=== PATIENT | male | born 1960 | race Caucasian/White ===

== ENCOUNTER → 2018-10-19 | Day surgery (SDC) | payer OTHER ==
[~2018-10-19] MED LIST: CEFAZOLIN SODIUM 1 GM/VIAL ONE; EPHEDRINE SULF 50 MG/10 ML SYR ONE; FENTANYL CITR 100 MCG/2 ML ONE; KETOROLAC 30 MG/ML INJ ONE; LIDOCAINE 1% MPF 30 ML VIAL ONE; LIDOCAINE 2% MPF 5 ML VIAL ONE; MIDAZOLAM HCL 2 MG/2 ML INJ ONE; Mastisol Adhesive Liq ONE; NA CHLORIDE 0.9% 100 ML IV ONE; NA CIT/CITRIC AC 30 ML ORAL UDC ONE; PROPOFOL 200 MG/20 ML VIAL IV ONE; Phenylephrine HCl 10 MG/ML 1 ML VIAL ONE; ROCURONIUM 50 MG/5 ML VIAL IV ONE; Ringers Lactate 1,000 ML IV ONE; SUCCINYLCHOLINE 20 MG/ML (10 ML) IV ONE; TETANUS & DIPHTHERIA TOX,ADULT 0.5 ML VIAL ONE
--- NOTE | 2018-10-19 12:32 | ER ---
Nurse's Notes [facility] Name: Jaquan Allan Age: 58 yrs Sex: Male : 1960 Arrival Date: 10/19/2018 Time: 11:29 Bed 9 Private MD: Diagnosis: Laceration of blood vessel of left little finger;Open fracture 5th digit left hand Presentation: 10/19 11:43 Presenting complaint: Patient states: Waterproofing Mixer disc "exploded", laceration noted to ph abdomen, bleeding controlled, laceration to base of L pinky finger w/ bleeding controlled. Transition of care: patient was not received from another setting of care. Complicating Factors: There are no complicating factors for this patient. Onset of symptoms was October 19, 2018. Risk Assessment: Do you want to hurt yourself or someone else? Patient reports no desire to harm self or others. Initial Sepsis Screen: Does the patient meet any 2 criteria? No. Patient's initial sepsis screen is negative. Does the patient have a suspected source of infection? No. Patient's initial sepsis screen is negative. Care prior to arrival: None. 11:43 Method Of Arrival: Ambulatory ph 11:43 Acuity: CARLA 4 ph 12:15 Acuity: CARLA 2 hb Historical: - Allergies: 11:46 No Known Allergies; ph - PMHx: 11:46 Hypertension; Hyperlipidemia; ph - Immunization history:: Last tetanus immunization: > 10 years ago. - Social history:: Smoking status: Patient/guardian denies using tobacco. - Ebola Screening: : No symptoms or risks identified at this time. Screenin:57 Abuse screen: Denies threats or abuse. Denies injuries from another. Nutritional hb screening: No deficits noted. Tuberculosis screening: No symptoms or risk factors identified. Fall Risk None identified. Assessment: 11:52 General: Appears in no apparent distress. Pain: Pain currently is 7 out of 10 on a pain hb scale. Neuro: Level of Consciousness is awake, alert, obeys commands, Oriented to person, place, time, situation. Cardiovascular: Capillary refill < 3 seconds Patient's skin is warm and dry. Respiratory: Airway is patent Respiratory effort is even, unlabored, Respiratory pattern is regular, symmetrical. GI: No signs and/or symptoms were reported involving the gastrointestinal system. : No signs and/or symptoms were reported regarding the genitourinary system. EENT: No signs and/or symptoms were reported regarding the EENT system. Derm: Skin is pink, warm \\T\\ dry. Musculoskeletal: No signs and/or symptoms reported regarding the musculoskeletal system. Injury Description: laceration to base of little finger and left abdomen, bleeding controlled. 12:22 Reassessment: Left little finger noted to be white, ROULA Thomas aware. hb 12:35 Reassessment: Admission ordered, awaiting OR team at this time. NAD. VSS. Family hb remains at bedside. Vital Signs: 11:46 BP 121 / 78; Pulse 85; Resp 20; Temp 97.9; Pulse Ox 98% on R/A; ph 12:30 BP 126 / 76; Pulse 84; Resp 16; Pulse Ox 100% on R/A; Pain 2/10; hb ED Course: 11:29 Patient arrived in ED. tw3 11:45 Triage completed. ph 11:47 Arm band placed on. ph 11:49 William Mustafa PA is PHCP. jr8 11:49 Ahsan Paulino MD is Attending Physician. jr8 11:52 Patient has correct armband on for positive identification. Bed in low position. hb 12:15 Inserted saline lock: 18 gauge in right forearm, using aseptic technique. Blood hb collected. 12:22 Faith Denny, JASE is Primary Nurse. hb 12:23 X-ray completed. Portable x-ray completed in exam room. Patient tolerated procedure jb2 well. 12:25 XRAY Hand LEFT 3 View In Process Unspecified. EDMS 12:31 Inna Dickerson MD is Hospitalizing Provider. jr8 12:52 No provider procedures requiring assistance completed. hb 12:52 Patient admitted, IV remains in place. 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 Exp: hb 09/21/2020. Lot #: [id number]. } Route: IM; Site: right deltoid; 12:32 Drug: Ancef 1 grams Route: IVPB; Site: right forearm; hb Outcome: 12:32 Decision to Hospitalize by Provider. jr8 12:52 Admitted to OR accompanied by nurse, family with patient, via stretcher, with chart. hb 12:52 Condition: stable 12:52 Instructed on the need for admit, Demonstrated understanding of instructions. 12:53 Patient left the ED. hb Signatures: Dispatcher [employer] EDMS Mika Guido2 William Mustafa PA PA jr8 Sharon Ruelas RN RN Faith Galicia RN RN Sheree Jackson tw3
--- NOTE | 2018-10-19 12:32 | EDPHYS ---
Physician Documentation [facility] Name: Jaquan Allan Age: 58 yrs Sex: Male : 1960 Arrival Date: 10/19/2018 Time: 11:29 Bed 9 Private MD: ED Physician Ahsan Paulino HPI: 10/19 12:14 This 58 yrs old Male presents to ER via Ambulatory with complaints of jr8 Laceration To Hand, Laceration to Abdomen. 12:14 The patient has a laceration related to: working, occurred outdoors. The laceration(s) jr8 is(are) located on the abdomen and left hand. Onset: The symptoms/episode began/occurred acutely, today. Associated signs and symptoms: The patient has no apparent associated signs or symptoms. The patient has not experienced similar symptoms in the past. The patient has not recently seen a physician. Stated that circular saw blew up causing laceration to left 5th digit on left hand and abdomen . Historical: - Allergies: 11:46 No Known Allergies; ph - PMHx: 11:46 Hypertension; Hyperlipidemia; ph - Immunization history:: Last tetanus immunization: > 10 years ago. - Social history:: Smoking status: Patient/guardian denies using tobacco. - Ebola Screening: : No symptoms or risks identified at this time. ROS: 12:14 Eyes: Negative for injury, pain, redness, and discharge, ENT: Negative for injury, jr8 pain, and discharge, Neck: Negative for injury, pain, and swelling, Cardiovascular: Negative for chest pain, palpitations, and edema, Respiratory: Negative for shortness of breath, cough, wheezing, and pleuritic chest pain, Abdomen/GI: Negative for abdominal pain, nausea, vomiting, diarrhea, and constipation, Back: Negative for injury and pain, MS/Extremity: Negative for injury and deformity, Neuro: Negative for headache, weakness, numbness, tingling, and seizure. 12:14 Skin: Positive for laceration(s), of the left hand and abdomen. Exam: 12:14 Eyes: Pupils equal round and reactive to light, extra-ocular motions intact. Lids and jr8 lashes normal. Conjunctiva and sclera are non-icteric and not injected. Cornea within normal limits. Periorbital areas with no swelling, redness, or edema. ENT: Nares patent. No nasal discharge, no septal abnormalities noted. Tympanic membranes are normal and external auditory canals are clear. Oropharynx with no redness, swelling, or masses, exudates, or evidence of obstruction, uvula midline. Mucous membranes moist. Neck: Trachea midline, no thyromegaly or masses palpated, and no cervical lymphadenopathy. Supple, full range of motion without nuchal rigidity, or vertebral point tenderness. No Meningismus. Cardiovascular: Regular rate and rhythm with a normal S1 and S2. No gallops, murmurs, or rubs. Normal PMI, no JVD. No pulse deficits. Respiratory: Lungs have equal breath sounds bilaterally, clear to auscultation and percussion. No rales, rhonchi or wheezes noted. No increased work of breathing, no retractions or nasal flaring. Abdomen/GI: Soft, non-tender, with normal bowel sounds. No distension or tympany. No guarding or rebound. No evidence of tenderness throughout. Back: No spinal tenderness. No costovertebral tenderness. Full range of motion. Neuro: Awake and alert, GCS 15, oriented to person, place, time, and situation. Cranial nerves II-XII grossly intact. Motor strength 5/5 in all extremities. Sensory grossly intact. Cerebellar exam normal. Normal gait. 12:14 Musculoskeletal/extremity: Extremities: grossly normal except: noted in the left hand 5th digit: Patients 5th digit is white from PIP to tip of finger. Mild sensation changes to lateral aspect. Approximately 2.5 cm laceration to MCP region kemp aspect that is deep. No active bleeding , ROM: intact in all extremities. 12:14 Skin: Patient has approximately 4.5 cm laceration down to dermal layer to left mid abdomen. Bleeding controlled. . Vital Signs: 11:46 BP 121 / 78; Pulse 85; Resp 20; Temp 97.9; Pulse Ox 98% on R/A; ph 12:30 BP 126 / 76; Pulse 84; Resp 16; Pulse Ox 100% on R/A; Pain 2/10; hb MDM: 11:49 Patient medically screened. jr8 12:13 ED course: Consulted Dr. Kaur who will take patient to surgery immediately for jr8 vascular injury . 12:14 Data reviewed: vital signs, nurses notes, lab test result(s), radiologic studies, plain jr8 films. Data interpreted: Pulse oximetry: on room air is 98 %. Interpretation: normal. Counseling: I had a detailed discussion with the patient and/or guardian regarding: the historical points, exam findings, and any diagnostic results supporting the discharge/admit diagnosis, lab results, the need for further work-up and treatment in the hospital. 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 Exp: hb 09/21/2020. Lot #: [id number]. } Route: IM; Site: right deltoid; 12:32 Drug: Ancef 1 grams Route: IVPB; Site: right forearm; hb Disposition: 14:18 Co-signature as Attending Physician, Ahsan Paulino MD I agree with the assessment and thomas plan of care. Disposition: 10/19/18 12:32 Hospitalization ordered by Inna Dickerson for Observation. Preliminary diagnosis are Laceration of blood vessel of left little finger, Open fracture 5th digit left hand. - Bed requested for Telemetry/MedSurg (observation). - Status is Observation. hb - Condition is Stable. - Problem is new. - Symptoms are unchanged. UTI on Admission? No Signatures: Dispatcher [employer] EDNC Ahsan Paulino MD MD cha Roszak, Josh, PA PA jr8 Sharon Ruelas RN RN Faith Denny RN RN hb Corrections: (The following items were deleted from the chart) 12:53 12:32 Hospitalization Ordered by Inna Dickerson MD for Observation. Preliminary hb diagnosis is Laceration of blood vessel of left little finger; Open fracture 5th digit left hand. Bed requested for Telemetry/MedSurg (observation). Status is Observation. Condition is Stable. Problem is new. Symptoms are unchanged. UTI on Admission? No. jr8
--- NOTE | 2018-10-19 12:34 | RAD REPORT ---
EXAM DESCRIPTION: RAD - Hand Left 3 View - 10/19/2018 12:27 pm CLINICAL HISTORY: laceration;Pain COMPARISON: No comparisons FINDINGS: Comminuted fracture involves the proximal phalanx of the fifth finger. No foreign body is evident.
[2018-10-19 12:46] LABS: Absolute Lymphocytes (CBC) 1.3 K/uL (0.7-4.9); Absolute Monocytes 0.5 K/uL (0.1-1.3); Hematocrit 42.7 % (39.6-49.0); Lymphocytes % 22.2 % (15.3-44.8); MPV 8.3 fL (7.6-11.3); Monocytes % 8.6 % (3.3-12.3); RBC Red Blood Cell Count 4.64 M/uL (4.33-5.43)
[2018-10-19 13:01] LABS: Potassium 4.1 mmol/L (3.5-5.1)
--- NOTE | 2018-10-19 15:37 | RAD REPORT ---
EXAM DESCRIPTION: RAD - Hand Left 2 View - 10/19/2018 3:32 pm CLINICAL HISTORY: PINNING OF 5TH FINGER COMPARISON: Hand Left 3 View dated 10/19/2018 FINDINGS: Fluoroscopic imaging from pinning of a a single proximal phalanx fracture is submitted. De tails of procedure not available. Fluoroscopy time 0.1 minutes.
--- NOTE | 2018-10-23 09:54 | OP ---
Date of Procedure: 10/19/2018 Surgeon: Faraz Kaur MD Tissue Inserter: Tim. Preoperative Diagnoses: Open fracture of the left little finger proximal phalanx and laceration to t he abdominal wall. Postoperative Diagnoses: Open fracture of the left little finger proximal phalanx and laceration to the abdominal wall. Procedure Performed: Debridement of skin and subcu tissue, layered closure of 5-cm wound of the ante rior abdominal wall, debridement of skin and subcu tissue of the left little finger, flap closure, sp lint, percutaneous pinning and microdissection repair of the ulnar digital artery, and splint. Anesthesia: General. Procedure In Detail: After satisfactory induction of general anesthesia, the abdomen and the left ar m were prepped with Betadine scrub and Betadine paint. Dry sterile drapes were applied in the usual manner. The arm was elevated, exsanguinated with an Esmarch. Tourniquet was inflated to 250 mmHg. Hand was placed on the [place] table. Skin and subcu tissue were debridement as needed of the little finger. The abdomen was debrided with skin and subcu tissue. Both wounds were jet lavaged and irri gated, and then the abdomen was closed with 4-0 PDS running subcuticular followed by tincture of mynor oin, Steri-Strips, 4x4, and tape dressing. The finger was debrided of skin and subcu tissue with a g rinder went through. Small foreign body was removed with dark tissue consisted of backside grinder, and then dissection proceeded down with a Max incision, zigzag fracture. The flexor tendon she ath had been viable. The tendons were intact. The patient had normal tone of the finger and normal posture. The patient then underwent dissection of the digital artery, digital nerve on ulnar side. The nerve was abraded and was intact. The artery had been transected. After was brought in the field. Microdissection was performed with curved micro scissors proximal clamp and repair was done with 0 Prolene suture. The dressing was irrigated with 2% Xylocaine during the proc edure. Attention was then turned to the fracture. Threaded K-wires 0.035 were placed from distal to proximal with the PIP joint flexed 90 degrees in and out the MCP and this was flexed 90 degrees. Th e was then advanced proximately and then the finger was placed in extension at the PIP and the . C-arm revealed adequate reduction and was placed. Tourniquet was releas ed and the wound was closed of flap advancement using 4-0 Prolene simple sutures of vertical mattress and half buried mattress. Dressing of Xeroform, 2-inch Ryan, Kerlix, and an ulnar gutter splint ho lding the wrist in 10 degrees of dorsiflexion, MCP 90, PIP and DIP 0. The patient tolerated the proc edure well and returned to recovery. APPLE/ARIEL Voice ID: [id number] Report ID: [id number]
== END ==
LOC: EDSTATUS 09:37 → ER 11:26 → DS 11:26 → ER 17:00
PROVIDERS: ATTEND Emergency Medicine
PROC: 0JBK0ZZ Excision of Left Hand Subcutaneous Tissue and Fascia, Open Approach (ICD-10-PCS; 2018-10-19)
PROC: 03QF0ZZ Repair Left Hand Artery, Open Approach (ICD-10-PCS; 2018-10-19)
PROC: 0HXGXZZ Transfer Left Hand Skin, External Approach (ICD-10-PCS; 2018-10-19)
PROC: 0PH Upper Bones, Insertion (ICD-10-PCS; principal; 2018-10-19 14:15)
PROC: 0JQ80ZZ Repair Abdomen Subcutaneous Tissue and Fascia, Open Approach (ICD-10-PCS; 2018-10-19 14:15)
DX: S65.517A Laceration of blood vessel of left little finger, initial encounter (principal); S62.617B Displaced fracture of proximal phalanx of left little finger, initial encounter for open fracture; S31.119A Laceration without foreign body of abdominal wall, unspecified quadrant without penetration into peritoneal cavity, initial encounter; W31.2XXA Contact with powered woodworking and forming machines, initial encounter; Z23 Encounter for immunization; I10 Essential (primary) hypertension; E78.5 Hyperlipidemia, unspecified
CPT/HCPCS: 36415; 80048; 85025; 90714; 96374; 99285; J0330; J0690; J2250; J2370; J2704; J3010

== ENCOUNTER 2018-11-09 14:45 | Emergency (ER) | payer OTHER ==
--- NOTE | 2018-11-09 15:54 | RAD REPORT ---
EXAM DESCRIPTION: RAD - Hand Left 3 View - 11/09/2018 3:44 pm CLINICAL HISTORY: 3 weeks post-op, swelling and re-injury;Pain COMPARISON: Hand Left 2 View dated 10/19/2018; Hand Left 3 View dated 10/19/2018 FINDINGS: Two K-wires are seen within the fifth for a spanning a comminuted fracture the proximal ph alanx of the fifth ray. Fracture lucency persists. The laterally located K-wire appears fractured pro ximally.
--- NOTE | 2018-11-09 16:03 | EDPHYS ---
Physician Documentation [facility] Name: Jaquan Allan Age: 58 yrs Sex: Male : 1960 Arrival Date: 11/09/2018 Time: 14:48 Bed 16 Private MD: Ulises Figueredo ED Physician Cristian Mejia HPI: 11/09 15:12 This 58 yrs old Male presents to ER via Ambulatory with complaints of Hand rn Swelling. 15:12 The patient or guardian reports pain, swelling. The complaints affect the left hand rn diffusely. Context: The problem was sustained. Onset: The symptoms/episode began/occurred 3 week(s) ago. Severity of symptoms: At their worst the symptoms were mild, in the emergency department the symptoms are unchanged. The patient has not experienced similar symptoms in the past. The patient has been recently seen by a physician:. Reports hand injury 3 weeks ago and had surgery by Dr. Kaur, reports doing well and sees him every Tuesday. Just saw him 4 days ago. Reports fell this past week again, saw Natasha Tuesday due to mild drainage from wound and swelling of hand, no abx given, told to continue to let wound breathe and remain in splint. Sees Dr. Kaur in 4 days again. . Historical: - Allergies: 15:09 No Known Allergies; ph - Home Meds: 15:09 amlodipine 10 mg tab 1 tab once daily [Active]; azelastine nasal nasal [Active]; ph fluticasone 50 mcg/actuation nasal spsn 2 sprays once daily [Active]; lisinopril 10 mg Oral tab 1 tab once daily [Active]; loratadine 10 mg oral TbDL 1 tab once daily [Active]; meloxicam 7.5 mg oral tab 1 tab once daily [Active]; montelukast 10 mg oral tab 1 tab once daily [Active]; gabapentin 300 mg oral cap 1 cap nightly [Active]; tamsulosin 0.4 mg oral cp24 1 cap once daily [Active]; Cephalexin Oral [Active]; acetaminophen-codeine 300-30 mg Oral tab [Active]; - PMHx: 15:09 Hyperlipidemia; Hypertension; ph - PSHx: 15:09 L hand sx; ph - Immunization history:: Adult Immunizations up to date. - Social history:: Smoking status: Patient uses tobacco products, smokes one pack cigarettes per day. - Ebola Screening: : No symptoms or risks identified at this time. - Family history:: not pertinent. - Hospitalizations: : The patient was recently seen at [facility]. ROS: 15:12 Constitutional: Negative for fever, chills, and weight loss, MS/Extremity: + hand rn swelling and mild drainage Exam: 15:12 Constitutional: This is a well developed, well nourished patient who is awake, alert, rn and in no acute distress. MS/ Extremity: Pulses equal, no cyanosis. + small amount of yellow drainage from surgical wound, no fluctuance, no tenderness, 2 pins dorsum 5th MC, no purulence expressed from wound with pressure. No tenderness along flexor sheaths. Vital Signs: 15:00 BP 139 / 78; Pulse 77; Resp 18; Temp 98.9(TE); Pulse Ox 98% ; Weight 95.25 kg; Height 5 ph ft. 7 in. (170.18 cm); 16:00 BP 128 / 76 LA Supine; Pulse 78; Resp 17 S; Pulse Ox 98% on R/A; rv 15:00 Body Mass Index 32.89 (95.25 kg, 170.18 cm) ph MDM: 14:57 Patient medically screened. rn 15:53 Differential diagnosis: broken pin, infection. Data reviewed: vital signs, nurses rn notes, lab test result(s), radiologic studies, plain films, and as a result, I will discharge patient. Counseling: I had a detailed discussion with the patient and/or guardian regarding: the historical points, exam findings, and any diagnostic results supporting the discharge/admit diagnosis, radiology results, the need for outpatient follow up, to return to the emergency department if symptoms worsen or persist or if there are any questions or concerns that arise at home. ED course: Consulted with Dr. Kaur, will put on abx, place back in splint and will f/u on Tuesday. . 11/09 15:12 Order name: Wound Culture rn 11/09 15:10 Order name: XRAY Hand LEFT 3 View; Complete Time: 16:03 rn Administered Medications: 16:00 Drug: Bactrim (160 mg-800 mg (DS) 1 tablet Route: PO; rv 16:16 Follow up: Response: No adverse reaction rv 16:00 Drug: KeFLEX 500 mg Route: PO; rv 16:16 Follow up: Response: No adverse reaction rv Disposition: 11/09/18 16:02 Discharged to Home. Impression: Fracture of orthopedic pins, Surgical Wound Infection. - Condition is Stable. - Discharge Instructions: Wound Infection. - Prescriptions for Keflex 500 mg Oral Capsule - take 1 capsule by ORAL route every 6 hours for 10 days; 40 capsule. Bactrim DS 800- 160 mg Oral Tablet - take 1 tablet by ORAL route every 12 hours for 10 days; 20 tablet. - Medication Reconciliation Form, Thank You Letter, Antibiotic Education, Prescription Opioid Use form. - Follow up: Faraz Kuar MD; When: 2 - 3 days; Reason: Recheck today's complaints, Re-evaluation by your physician. - Problem is new. - Symptoms have improved. Signatures: Dispatcher [employer] EDMS Cristian Mejia MD MD rn Hall, Patricia RN RN Lucius Maurer RN RN rv Corrections: (The following items were deleted from the chart) 15:15 15:12 Hospitalizations: No recent hospitalization is reported. rn rn 16:34 16:02 11/09/2018 16:02 Discharged to Home. Impression: Fracture of orthopedic pins; rv Surgical Wound Infection. Condition is Stable. Forms are Medication Reconciliation Form, Thank You Letter, Antibiotic Education, Prescription Opioid Use. Follow up: Faraz Kaur; When: 2 - 3 days; Reason: Recheck today's complaints, Re-evaluation by your physician. Problem is new. Symptoms have improved. rn
--- NOTE | 2018-11-09 16:03 | ER ---
Nurse's Notes [facility] Name: Jaquan Allan Age: 58 yrs Sex: Male : 1960 Arrival Date: 11/09/2018 Time: 14:48 Bed 16 Private MD: Ulises Figueredo Diagnosis: Fracture of orthopedic pins;Surgical Wound Infection Presentation: 11/09 14:58 Presenting complaint: Patient states: Had L hand sx w/ hardware placed 11/[address] mg Bardales, fell last Wed and now has increased swelling and drainage from surgical site, denies fever N/V. Transition of care: patient was not received from another setting of care. Onset of symptoms was November 09, 2018. Risk Assessment: Do you want to hurt yourself or someone else? Patient reports no desire to harm self or others. Care prior to arrival: None. 14:58 Method Of Arrival: Ambulatory 14:58 Acuity: CARLA 4 ph 15:45 Initial Sepsis Screen: Does the patient meet any 2 criteria? No. Patient's initial rv sepsis screen is negative. Does the patient have a suspected source of infection? No. Patient's initial sepsis screen is negative. Historical: - Allergies: 15:09 No Known Allergies; ph - Home Meds: 15:09 amlodipine 10 mg tab 1 tab once daily [Active]; azelastine nasal nasal [Active]; ph fluticasone 50 mcg/actuation nasal spsn 2 sprays once daily [Active]; lisinopril 10 mg Oral tab 1 tab once daily [Active]; loratadine 10 mg oral TbDL 1 tab once daily [Active]; meloxicam 7.5 mg oral tab 1 tab once daily [Active]; montelukast 10 mg oral tab 1 tab once daily [Active]; gabapentin 300 mg oral cap 1 cap nightly [Active]; tamsulosin 0.4 mg oral cp24 1 cap once daily [Active]; Cephalexin Oral [Active]; acetaminophen-codeine 300-30 mg Oral tab [Active]; - PMHx: 15:09 Hyperlipidemia; Hypertension; ph - PSHx: 15:09 L hand sx; ph - Immunization history:: Adult Immunizations up to date. - Social history:: Smoking status: Patient uses tobacco products, smokes one pack cigarettes per day. - Ebola Screening: : No symptoms or risks identified at this time. - Family history:: not pertinent. - Hospitalizations: : The patient was recently seen at [facility]. Screenin:45 Abuse screen: Denies threats or abuse. Denies injuries from another. Nutritional rv screening: No deficits noted. Tuberculosis screening: No symptoms or risk factors identified. Fall Risk None identified. Assessment: 15:44 General: Appears in no apparent distress. comfortable, Behavior is calm, cooperative. rv Pain: Denies pain. Neuro: Level of Consciousness is awake, alert, obeys commands, Oriented to person, place, time, situation. Cardiovascular: Capillary refill < 3 seconds. Respiratory: Airway is patent. GI: No signs and/or symptoms were reported involving the gastrointestinal system. : No signs and/or symptoms were reported regarding the genitourinary system. EENT: No signs and/or symptoms were reported regarding the EENT system. Derm: Skin is intact. Musculoskeletal: Swelling present in left hand. Vital Signs: 15:00 BP 139 / 78; Pulse 77; Resp 18; Temp 98.9(TE); Pulse Ox 98% ; Weight 95.25 kg; Height 5 ph ft. 7 in. (170.18 cm); 16:00 BP 128 / 76 LA Supine; Pulse 78; Resp 17 S; Pulse Ox 98% on R/A; rv 15:00 Body Mass Index 32.89 (95.25 kg, 170.18 cm) ph ED Course: 14:48 Patient arrived in ED. mr 14:49 Ulises Figueredo MD is Private Physician. mr 14:57 Cristian Mejia MD is Attending Physician. rn 15:00 Triage completed. ph 15:09 Arm band placed on Patient placed in an exam room, on a stretcher. ph 15:44 Lucius Mcnally RN is Primary Nurse. rv 15:44 XRAY Hand LEFT 3 View In Process Unspecified. EDMS 15:45 Patient has correct armband on for positive identification. Bed in low position. Call rv light in reach. Side rails up X 1. Pulse ox on. NIBP on. 16:00 Faraz Kaur MD is Referral Physician. rn Administered Medications: 16:00 Drug: Bactrim (160 mg-800 mg (DS) 1 tablet Route: PO; rv 16:16 Follow up: Response: No adverse reaction rv 16:00 Drug: KeFLEX 500 mg Route: PO; rv 16:16 Follow up: Response: No adverse reaction rv Outcome: 16:02 Discharge ordered by . zainab 16:34 Patient left the ED. rv Addendum: 11/13/2018 07:53 Addendum: Culture Results: Positive wound culture. No further action required. Bacteria i w sensitive to prescribed antibiotic. Signatures: Dispatcher [employer] [place] Eric Brittaney Susie Aguirre RN RN iw Nieto, Roman, MD MD rn Hall, Patricia, RN RN ph Vicente, Ronaldo, RN RN rv Corrections: (The following items were deleted from the chart) 11/09 15:15 15:12 Hospitalizations: No recent hospitalization is reported. zainab lamb
[2018-11-09] MEDS ORDERED: CEPHALEXIN 250 MG CAP ONE (16:10)
[2018-11-09] MEDS ORDERED: SMZ./TMP. 800/160 MG TABLET ONE (16:11)
== END 2018-11-09 16:34 | disposition home or self-care (01) ==
LOC: ER 14:45
DX: T84.210A Breakdown (mechanical) of internal fixation device of bones of hand and fingers, initial encounter (principal); T81.49XA Infection following a procedure, other surgical site, initial encounter; W19.XXXA Unspecified fall, initial encounter; Y93.9 Activity, unspecified; Y92.9 Unspecified place or not applicable; E78.5 Hyperlipidemia, unspecified; I10 Essential (primary) hypertension; F17.210 Nicotine dependence, cigarettes, uncomplicated
CPT/HCPCS: 87070; 87077; 87186; 87205; 99283

== ENCOUNTER 2018-12-05 08:21 | Day surgery (SDC) | payer OTHER ==
[2018-12-04 11:07] LABS: Absolute Lymphocytes (CBC) 2.1 K/uL (0.7-4.9); Absolute Monocytes 0.6 K/uL (0.1-1.3); Absolute Neutrophil 3.9 K/uL (1.8-8.0); Eosinophils % 2.9 % (0-4.4); Hematocrit 39.2 % (39.6-49.0); Lymphocytes % 30.3 % (15.3-44.8); MPV 8.3 fL (7.6-11.3); Monocytes % 8.9 % (3.3-12.3); RBC Red Blood Cell Count 4.27 M/uL (4.33-5.43)
[2018-12-05] MEDS ORDERED: Ringers Lactate 1,000 ML IV ONE (08:49)
[2018-12-05] MEDS ORDERED: CEFAZOLIN/SWI 1gm 1 GM/10 ML SYR ONE (08:50)
[2018-12-05] MEDS ORDERED: FENTANYL CITR 100 MCG/2 ML ONE (10:21)
[2018-12-05] MEDS ORDERED: LIDOCAINE 1% MPF 5 ML VIAL ONE (10:21)
[2018-12-05] MEDS ORDERED: MIDAZOLAM HCL 2 MG/2 ML INJ ONE (10:21)
[2018-12-05] MEDS ORDERED: PROPOFOL 200 MG/20 ML VIAL IV ONE (10:21)
[2018-12-05] MEDS ORDERED: KETOROLAC 30 MG/ML INJ ONE (11:06)
[2018-12-05] MEDS ORDERED: ONDANSETRON 4 MG/2 ML VIAL ONE (11:09)
[2018-12-05] MEDS: HYDROMORPHONE HCL 1 MG/ML INJ ONE ×2 (11:46→11:54)
[2018-12-05] MEDS ORDERED: CODEINE 30MG/APAP 300MG TAB ONE (13:10)
--- NOTE | 2018-12-05 14:19 | RAD REPORT ---
EXAM DESCRIPTION: RAD - Hand Right 2 View - 12/05/2018 1:29 pm FINDINGS: There 4 portable C-arm fluoroscopic images obtained during assisted removal of surgical weber rdware. No suspicious or unexpected finding. Fluoro time was 0.3 minutes.
--- NOTE | 2018-12-06 08:47 | OP ---
Surgeon: Faraz Kaur MD Storeroom Supervisor: Tim. Preoperative Diagnoses: Retained hardware, status post percutaneous pinning of fracture of the left little finger, proximal phalanx. Postoperative Diagnoses: Retained hardware, status post percutaneous pinning of fracture of the left little finger, proximal phalanx. Procedures Performed: Open removal of hardware with arthrotomy of the metacarpophalangeal joint and removal of a K-wire. Anesthesia: General. Procedure In Detail: After satisfactory induction of general anesthesia, left hand was prepped with Betadine scrub, Betadine paint, dry sterile drapes applied in the usual manner. The arm was elevated , exsanguinated with an Esmarch. Tourniquet was inflated to 250 mmHg. Hand was placed on the Rotalo k table. A C-arm was used to review the location of pin. 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 Then, incision was made. Dissection proceeded down. The extensor mechanism was open on the ulnar side, shifted radially, and the patient's joint was opened on the ulnar side, with trac tion on the finger and flexed it to approximately 90 degrees, we were able to access the broken wire. We grasped it with the needle martin and manually twisted it. We were able to rotate it out of pos ition and then we attached the drill to remove the rest of the way. The wound was irrigated with Bet adine solution and tourniquet released. Electrocautery was used for hemostasis. closed w ith 4-0 Prolene clear and the skin closed with 4-0 Prolene . Dressings consisted of Xeroform, 2-inch Ryan, Kerlix. The patient tolerated the procedure well and returned to Recovery. APPLE/ARIEL Voice ID: [id number] Report ID: [id number]
== END 2018-12-05 13:30 | disposition home or self-care (01) ==
LOC: OR 08:21
PROVIDERS: ATTEND Specialist
PROC: 0RP Upper Joints, Removal (ICD-10-PCS; principal; 2018-12-05 10:00)
DX: S62.607D Fracture of unspecified phalanx of left little finger, subsequent encounter for fracture with routine healing (principal); X58.XXXD Exposure to other specified factors, subsequent encounter
CPT/HCPCS: 36415; 85025; J0690; J1170; J2250; J2405; J2704; J3010

== ENCOUNTER 2019-04-03 08:55 | Day surgery (SDC) | payer OTHER ==
[2019-04-03 08:48] LABS: Absolute Lymphocytes (CBC) 2.2 K/uL (0.7-4.9); Basophils % 1.1 % (0-1.3); Hematocrit 41.9 % (39.6-49.0); MPV 7.9 fL (7.6-11.3)
[~2019-04-03 08:55] MED LIST changes: -CEFAZOLIN SODIUM 1 GM/VIAL ONE; -EPHEDRINE SULF 50 MG/10 ML SYR ONE; -FENTANYL CITR 100 MCG/2 ML ONE; -KETOROLAC 30 MG/ML INJ ONE; -LIDOCAINE 1% MPF 30 ML VIAL ONE; -LIDOCAINE 2% MPF 5 ML VIAL ONE; -Mastisol Adhesive Liq ONE; -NA CHLORIDE 0.9% 100 ML IV ONE; -NA CIT/CITRIC AC 30 ML ORAL UDC ONE; -PROPOFOL 200 MG/20 ML VIAL IV ONE; -Phenylephrine HCl 10 MG/ML 1 ML VIAL ONE; -ROCURONIUM 50 MG/5 ML VIAL IV ONE; -Ringers Lactate 1,000 ML IV ONE; -SUCCINYLCHOLINE 20 MG/ML (10 ML) IV ONE; -TETANUS & DIPHTHERIA TOX,ADULT 0.5 ML VIAL ONE
[2019-04-03] MEDS ORDERED: Ringers Lactate 1,000 ML IV ONE (08:56)
[2019-04-03] MEDS ORDERED: FENTANYL CITR 100 MCG/2 ML ONE (09:09)
[2019-04-03] MEDS ORDERED: PROPOFOL 200 MG/20 ML VIAL IV ONE (09:09)
[2019-04-03] MEDS ORDERED: LIDOCAINE 2% MPF 5 ML VIAL ONE (09:10)
[2019-04-03] MEDS ORDERED: ONDANSETRON 4 MG/2 ML VIAL ONE (09:11)
--- OUTSIDE RECORDS SUMMARY | 2019-04-03 09:11 | XMS REPORT | Summary of Care ---
:1960 Author Organization [facility] Address [address] [place] [address]- Encounter HQ Encntr_alias(FIN) [id number] Date(s): 03/23/19 - 03/23/19 [facility] [address], [place] [address]- [phone] Attending Physician: Johnathon Hernandez MD Vital Signs No data available for this section Problem List No data available for this section Allergies, Adverse Reactions, Alerts No data available for this section Medications No data available for this section Results No data available for this section Immunizations No data available for this section Procedures No data available for this section Social History No data available for this section Assessment and Plan No data available for this section
--- OUTSIDE RECORDS SUMMARY | 2019-04-03 09:11 | XMS REPORT | Continuity of Care Document ---
:1960 Author Organization [facility] Care Team Providers Name Role Phone [facility] Unavailable Unavailable Problems No Data Provided for This Section Medications No Data Provided for This Section Allergies, Adverse Reactions, Alerts No Known Medication Allergies Immunizations No Data Provided for This Section Results No Data Provided for This Section Pathology Reports No Data Provided for This Section Diagnostic Reports No Data Provided for This Section Consultation Notes No Data Provided for This Section Discharge Summaries No Data Provided for This Section History and Physicals No Data Provided for This Section Vital Signs No Data Provided for This Section Encounters Location Location Encounter Encounter Reason Attending ADM DC Status Source Details Type Number For Provider Date Date Visit Outpatient [id number] Johnathon 03/23 [facility] [id number] Johnathon 03/23 03/24 [facility] [place] [facility] [id number] Johnathon 03/23 03/23 [facility] [place] Procedures No Data Provided for This Section Assessment and Plan No Data Provided for This Section Plan of Care No Data Provided for This Section Social History Social History Date Source No data available for this 03/24/2019 [facility] [place] Family History No Data Provided for This Section Advance Directives No Data Provided for This Section Functional Status No Data Provided for This Section
--- OUTSIDE RECORDS SUMMARY | 2019-04-03 09:11 | XMS REPORT | Summary of Care ---
:1960 Author Organization [facility] Address [address] [place] [address]- Encounter HQ Encntr_alias(FIN) [id number] Date(s): 03/23/19 - 03/23/19 [facility] [address], [place] [address]- [phone] Discharge Disposition: Home or Self Care Attending Physician: Johnathon Hernandez MD Vital Signs [...]
--- OUTSIDE RECORDS SUMMARY | 2019-04-03 09:11 | XMS REPORT | Clinical Summary ---
:1960 Author Organization [facility] Address [address] [place] [address] Care Team Providers Name Role Phone Unavailable Primary Care Provider Unavailable Allergies Not on File Medications Not on file Active Problems Not on file Social History Tobacco Use Types Packs/Day Years Used Date Never Assessed Sex Assigned at Date Recorded Not on file Job Start Date Occupation Industry Not on file Not on file Not on file Travel History Travel Start Travel End No recent travel history available. Last Filed Vital Signs Not on file Plan of Treatment Date Type Specialty Care Team Description 04/10/2019 Hospital Encounter Johnson Bruno MD [address] [facility] [address] [place] [address] [phone] 04/10/2019 Surgery Johnson Bruno MD RECONSTRUCTION,OSSICULAR [address] [facility] [address] [place] [address] [phone] Results Not on fileafter 04/02/2018 Insurance Payer Benefit Plan / Group Subscriber ID Type Phone Address OTHER-COMMERCIAL GENERIC COMMERCIAL xxxxxxxxx
[2019-04-03] MEDS: CEFAZOLIN/SWI 1gm 1 GM/10 ML SYR ONE ×2 (09:21→09:30)
--- NOTE | 2019-04-03 09:34 | RAD REPORT ---
EXAM DESCRIPTION: RAD - Chest Pa And Lat (2 Views) - 04/03/2019 8:55 am CLINICAL HISTORY: preop, patient pending left carpal tunnel surgery, 30 year smoking history COMPARISON: None. TECHNIQUE: PA and lateral views of the chest were obtained. FINDINGS: The lungs are clear. Heart size is normal and central vasculature is within normal limit s. No pleural effusion or pneumothorax seen. No acute bony finding noted. No aortic abnormality. IMPRESSION: No acute cardiopulmonary process.
--- NOTE | 2019-04-03 09:36 | RAD REPORT ---
EXAM DESCRIPTION: RAD - Hand Left 2 View - 04/03/2019 8:55 am CLINICAL HISTORY: Preop examination, patient pending left hand carpal tunnel surgery COMPARISON: November 2018 FINDINGS: Dens from the fifth digit fracture repair have been removed since comparison. The fracture of the fifth proximal phalanx has healed. No remnant fracture. Patient has IP joint space narrowing throughout the hand with marginal spurring. No erosive component. MCP joints show minimal joint space narrowing without spurring or erosion. No acute bone or joint finding. No air or foreign body in the soft tissues. IMPRESSION: Left hand degenerative changes are present as detailed. Proximal fifth phalanx fracture is healed. No acute bone finding.
[2019-04-03] MEDS: HYDROMORPHONE HCL 1 MG/ML INJ ONE ×2 (10:26→10:31)
[2019-04-03] MEDS ORDERED: CODEINE 30MG/APAP 300MG TAB ONE (11:00)
--- NOTE | 2019-04-03 11:20 | EKG ---
Test Date: 2019-04-03 Test Time: 08:27:07 Merchandising Manager: GIOVANNA MEASUREMENT RESULTS: Intervals: Rate: 59 NJ: 184 QRSD: 86 QT: 394 QTc: 390 [place]: P: 35 NJ: 184 QRS: 34 T: 45 INTERPRETIVE STATEMENTS: Sinus bradycardia Otherwise normal ECG No previous ECG available for comparison Electronically Signed On 04-03-19 11:18:43 CDT by Tyrell Bravo
--- NOTE | 2019-04-03 21:42 | OP ---
Surgeon: Faraz Kaur MD Preoperative Diagnosis: Bilateral carpal tunnel syndrome with ulnar nerve entrapment. Postoperative Diagnosis: Bilateral carpal tunnel syndrome with ulnar nerve entrapment. Procedure Performed: Left carpal tunnel release and Guyon canal release with the splint. Anesthesia: General. Procedure In Detail: After satisfactory induction of general anesthesia, the left arm was prepped wi th Betadine scrub, Betadine paint, dry sterile drapes placed in the usual manner. The arm was elevat ed, exsanguinated with an Esmarch, tourniquet inflated to 250 mmHg. Hand placed on the Rotolok table . A felt-tip marking pen was used to outline the palmar incision crossing the flexion crease so that the wrist extended ulnarly. Incision was made, flaps were elevated. Dissection proceeded down, the transverse carpal ligament was divided. The floor was inspected, no masses. The motor branch of th e median nerve was identified. Then dissection proceeded ulnarly. The Guyon canal was identified, o pened with scissors, and released. Tourniquet released. Electrocautery was used for hemostasis. Wo und closed with 4-0 prolene vertical mattress, half buried mattress, and simple sutures. Dressed wit h Xeroform, 2 inch Ryan. Kerlix and a splint holding the wrist in 10 degrees of dorsiflexion. The patient tolerated the procedure well and returned to recovery. APPLE/ARIEL Voice ID: [id number] Report ID: [id number]
== END 2019-04-03 11:37 | disposition home or self-care (01) ==
LOC: OR 08:55
PROVIDERS: ATTEND Specialist
PROC: 01N40ZZ Release Ulnar Nerve, Open Approach (ICD-10-PCS; 2019-04-03)
PROC: 01N50ZZ Release Median Nerve, Open Approach (ICD-10-PCS; principal; 2019-04-03 09:00)
DX: G56.03 Carpal tunnel syndrome, bilateral upper limbs (principal); G56.23 Lesion of ulnar nerve, bilateral upper limbs; I10 Essential (primary) hypertension; Z72.0 Tobacco use
CPT/HCPCS: 93005; 85025; 36415; 71046; 73120; 64721; 64719; J2704; J2250; J3010; J1170; J0690; J2405

== ENCOUNTER 2019-05-03 09:19 | Day surgery (SDC) | payer OTHER ==
[2019-05-03] MEDS ORDERED: CEFAZOLIN/SWI 1gm 1 GM/10 ML SYR ONE (09:30)
[2019-05-03] MEDS ORDERED: Ringers Lactate 1,000 ML IV ONE (09:30)
[2019-05-03] MEDS ORDERED: PROPOFOL 200 MG/20 ML VIAL IV ONE (10:23)
[2019-05-03] MEDS ORDERED: FENTANYL CITR 100 MCG/2 ML ONE (10:23)
[2019-05-03] MEDS ORDERED: LIDOCAINE 2% MPF 5 ML VIAL ONE (10:24)
[2019-05-03] MEDS ORDERED: MIDAZOLAM HCL 2 MG/2 ML INJ ONE (10:24)
[2019-05-03] MEDS ORDERED: ONDANSETRON 4 MG/2 ML VIAL ONE (11:32)
[2019-05-03] MEDS ORDERED: CODEINE 30MG/APAP 300MG TAB ONE (12:29)
[2019-05-03 12:38] VITALS: BP 124/75; TEMP 97.2; O2SAT 97
--- NOTE | 2019-05-03 22:33 | OP ---
Surgeon: Faraz Kaur MD Ventilating Equipment Installer: Tim. Preoperative Diagnosis: Right carpal tunnel syndrome and ulnar nerve entrapment at the wrist. Postoperative Diagnosis: Right carpal tunnel syndrome and ulnar nerve entrapment at the wrist. Procedure Performed: Right carpal tunnel release and Guyon's canal release and splint. Anesthesia: General. Procedure In Detail: After satisfactory induction of general anesthesia, the right arm was prepped w ith Betadine scrub, Betadine paint, dry sterile drapes applied in the usual manner. The arm was elev ated and exsanguinated with an Esmarch. Tourniquet inflated to 250 mmHg. Hand placed on Rotalok tab le. A scalpel was used to make a palmar incision zigzagging and approached with flexion crease. Dis section proceeded down. Transverse carpal ligament was divided. Then the floor was inspected. Ther e was no masses at the motor branch of the maneuver identified going to the thenar muscles. Then the superficial arch was identified and the Guyon's canal was released with tenotomy scissors and then t ourniquet released. Electrocautery was used for hemostasis. Wound closed with 4-0 Prolene vertical mattress, half buried mattress simple sutures. Dressed with Xeroform, 2-inch Ryan Kerlix with a spl int on the wrist in 10 degrees of dorsiflexion. The patient tolerated the procedure well and returned to recovery. REJI Voice ID: [id number] Report ID: [id number]
== END 2019-05-03 13:16 | disposition home or self-care (01) ==
LOC: OR 09:19
PROVIDERS: ATTEND Specialist
PROC: 01N40ZZ Release Ulnar Nerve, Open Approach (ICD-10-PCS; 2019-05-03)
PROC: 01N50ZZ Release Median Nerve, Open Approach (ICD-10-PCS; principal; 2019-05-03 11:00)
DX: G56.01 Carpal tunnel syndrome, right upper limb (principal); G56.21 Lesion of ulnar nerve, right upper limb
CPT/HCPCS: 64721; 64719; J2704; J2250; J3010; J0690; J2405

== ENCOUNTER 2023-08-16 05:33 | Day surgery (SDC) | payer BC ==
[2023-08-11 14:20] LABS: Absolute Lymphocytes (CBC) 2.7 K/uL (0.7-4.9); Hematocrit 39.5 % (39.6-49.0); Lymphocytes % 30.3 % (15.3-44.8); MCV 92.4 fL (80-100); MPV 7.3 fL (7.6-11.3); Platelets 352 thou/uL (152-406); RBC Red Blood Cell Count 4.28 M/uL (4.33-5.43)
--- NOTE | 2023-08-12 13:40 | EKG ---
Test Date: 2023-08-11 Test Time: 14:52:32 Research Manager: MISSY MEASUREMENT RESULTS: Intervals: Rate: 71 NC: 186 QRSD: 96 QT: 372 QTc: 404 [place]: P: 58 NC: 186 QRS: 60 T: 59 INTERPRETIVE STATEMENTS: Normal sinus rhythm Normal ECG Compared to ECG 04/03/2019 08:27:07 Sinus bradycardia no longer present Electronically Signed On 08-12-23 13:38:52 EVENT HOST by Fernando Hess
[2023-08-16] MEDS ORDERED: Ringers Lactate 1,000 ML IV ONE (05:40)
[2023-08-16] MEDS ORDERED: CEFAZOLIN SODIUM 1 GM/VIAL ONE (05:40)
[2023-08-16] MEDS ORDERED: dexAMETHasone 10 MG/ML VIAL ONE ×2 (06:21→07:01)
[2023-08-16] MEDS ORDERED: LIDOCAINE 2% MPF 5 ML VIAL ONE ×2 (06:21→07:01)
[2023-08-16] MEDS ORDERED: FENTANYL CITR 100 MCG/2 ML ONE (06:22)
[2023-08-16] MEDS ORDERED: EPINEPHRINE 1 MG/ML VIAL ONE (06:22)
[2023-08-16] MEDS ORDERED: MIDAZOLAM HCL 2 MG/2 ML INJ ONE (06:22)
[2023-08-16] MEDS ORDERED: propofoL 200 MG/20 ML VIAL IV ONE (07:01)
[2023-08-16] MEDS ORDERED: ONDANSETRON 4 MG/2 ML VIAL ONE (07:01)
[2023-08-16] MEDS ORDERED: KETOROLAC 30 MG/ML INJ ONE (07:01)
[2023-08-16] MEDS ORDERED: NS 0.9% VIAL 10 ML ONE ×3 (07:56→08:35)
--- NOTE | 2023-08-16 10:16 | OP ---
Date of Procedure: 08/16/2023 Surgeon: Young Simmons MD Preoperative Diagnosis: Right shoulder rotator cuff tear with probable biceps pathology and impingem ent. Postoperative Diagnoses: 1.Very large rotator cuff tear. 2.Subacromial impingement. 3.Biceps pathology and fraying of greater than 50%. Procedures: 1.Arthroscopic biceps tenotomy without tenodesis and with limited debridement. 2.Mini open subacromial decompression. 3.Repair of rotator cuff tear. Estimated Blood Loss: 20 cc Complications: There were no complications. Indications For Operation: Mr. Allan is a 62-year-old male who has been troubled with his right s houlder for some time. He has had one injection, however did not assist him with his symptoms for a significant amount of time. He continues to have pain and problems related to his shoulder. He has an MRI, which demonstrates a very large rotator cuff tear. Risks, benefits, and alternatives to diff erent methods of treating this have been discussed with the patient. He states he understands things as presented and agrees to proceed. Specifically, discussed the possibility of biceps tenotomy with or without tenodesis. However, we discussed the options at this time. He knows that if we did do a tenotomy, would have not performed tenodesis. All of his questions were otherwise invited and answe red, including other specific risks and benefits. Description Of Procedure: The patient was taken to the operating room, placed in supine position. G eneral anesthesia was easily obtained by the anesthesia staff. He has previously had a block in the holding area. After this, he was then placed in the beach chair position with Anesthesia checking al l of his bony prominences and proper positioning. After this, the right upper extremity was then pre pped and draped in usual sterile fashion for arthroscopy and a standard posterior arthroscopy incisio n was made, and the camera was introduced in the shoulder atraumatically with 1 pass. The shoulder w as then examined, demonstrated a very large rotator cuff tear as well as significant fraying of the b iceps and biceps anchor. After this, an anterior portal was established and used as a working portal . We used the probe, demonstrates that the biceps was very significantly frayed. I would say at aman st over 50%. Decision was made to use combination of hand instruments and shaver to debride back the biceps tendon and perform tenotomy. The small stump of the biceps tendon was removed. There was a slight amount of other debridement done of the undersurface of the rotator cuff as well as some shane l fraying. After this, the arthroscopic instruments were removed. The posterior portal was stapled. All instruments and gloves were changed. It was then re-prepped. A standard incision was then mad e anteriorly. This does connect with the anterior arthroscopy incision, so it appeared larger than i t actually was, but it was a standard length for me for this procedure. Following this, it was then taken down carefully through skin only. Meticulous hemostasis remained and maintained using Bovie el ectrocautery. This was followed by the use of scissors to allow for good working window. The clavic le was palpated, did not appear to be extremely bulbous, and decision was made to perform in the cont inued standard fashion and the anterior deltoid was taken off the anterior acromion and tagged for la ter repair. A finger was then placed under the acromion in the region of the acromioclavicular ligam ent and did not find extensive osteophyte formation. Decision was made not to perform a distal clavi venecia resection. After this, the rotator cuff itself was inspected. It was found to be extremely torn and there were sections of it, which appeared to have retracted as well as other sections, which shahana eared to be scarred into more or less of bulbous structure. Nonviable rotator cuff tearing was then debrided allowing for better visualization and did appear that we can bring down the rotator cuff ove r the humeral head using a JuggerKnot, and JuggerKnot was placed in standard fashion. This did bring the large rotator cuff tear down over the humeral head, and it was then secured down to the JuggerKn ot, which appeared to be a good repair with good coverage. There may be some slight gapping posterio rly. A suture was then placed anteriorly to help secure this leaf of the rotator cuff. Decision was made not to place an incision posteriorly as it appeared to be well approximated. The shoulder was then brought through range of motion. It was felt that it was secure. The wound was then irrigated and the deltoid was repaired back to the acromion using Ethibond suture through bone tunnel as well a s oversewing with heavy Vicryl. It was again irrigated and skin was closed using interrupted Vicryl, followed by jarad. The patient was then placed in Aquacel dressing and taken to recovery room in good condition. There were no complications. /ARIEL Voice ID: [id number] Report ID: [id number]
[2023-08-16 11:01] VITALS: BP 102/49; TEMP 97.1; O2SAT 96
== END 2023-08-16 10:50 | disposition home or self-care (01) ==
LOC: OR 05:33
PROVIDERS: ATTEND Orthopaedic Surgery
PROC: 0LM10ZZ Reattachment of Right Shoulder Tendon, Open Approach (ICD-10-PCS; 2023-08-16)
PROC: 0RNJ0ZZ Release Right Shoulder Joint, Open Approach (ICD-10-PCS; 2023-08-16)
PROC: 0LB14ZZ Excision of Right Shoulder Tendon, Percutaneous Endoscopic Approach (ICD-10-PCS; principal; 2023-08-16 07:00)
DX: M75.121 Complete rotator cuff tear or rupture of right shoulder, not specified as traumatic (principal); I10 Essential (primary) hypertension; N40.0 Benign prostatic hyperplasia without lower urinary tract symptoms
CPT/HCPCS: 29822; 23412; 23130; 93005; 85025; 80048; 36415; A4216 ×3; J2704; J2001 ×2; J2250; J3010; J1100 ×2; J0171; J2405; J7120; J0690